=== PATIENT | male | born 1975 | race Caucasian/White ===

== ENCOUNTER 2016-09-18 03:08 | Emergency (ER) | payer MEDICAID ==
[~2016-09-18] VITALS: Ht 165.1 cm; Wt 74.8 kg
--- NOTE | 2016-09-18 03:08 | NUR ---
PT ROSALIA KUHNS. TAKEN TO BED 4
[2016-09-18 03:12] VITALS: BP 5/7
--- NOTE | 2016-09-18 03:15 | NUR ---
BIB [facility], PT C/O ABD PAIN ON RT SIDE. PT STATES HX OF NEUROPAHTY AND IMMUNE DEFICIENCY DENIES N/V/D; SKIN IS PINK/WARM/DRY; AAOX4 WITH EVEN AND STEADY GAIT; LUNGS CLEAR BL; HR EVEN AND REGULAR; PT DENIES ANY FEVER, CP, SOB, OR COUGH AT THIS TIME; PATIENT STATES PAIN OF 7/10 AT THIS TIME; VSS; PATIENT POSITIONED FOR COMFORT; HOB ELEVATED; BEDRAILS UP X2; BED DOWN. ER MD MADE AWARE OF PT STATUS.
--- NOTE | 2016-09-18 03:19 | NUR ---
Dr. Reyes evaluating patient at bedside.
[2016-09-18] MEDS ORDERED: KETOROLAC 30 MG/ML VIAL IM ONE (03:25)
--- NOTE | 2016-09-18 03:49 | NUR ---
I/O CATH, URINE OBTAINED FOR DIP AND UA
--- NOTE | 2016-09-18 03:50 | NUR ---
PT SLEEPING AT THIS TIME, NO DISTRESS OR PAIN NOTED AT THIS TIME
--- NOTE | 2016-09-18 04:18 | NUR ---
md talking to pt regarding discharge.
--- NOTE | 2016-09-18 04:29 | NUR ---
Patient discharged with v/s stable. Written and verbal after care instructions given and explained. Patient alert, oriented and verbalized understanding of instructions. Ambulatory with steady gait. All questions addressed prior to discharge. ID band removed. Patient advised to follow up with PMD. Rx of naprosyn given. Patient educated on indication of medication including possible reaction and side effects. Opportunity to ask questions provided and answered. handout of rehab centers given to patient per his request.
[2016-09-18 04:31] VITALS: BP 152/99
== END 2016-09-18 04:29 | disposition home or self-care (01) ==
LOC: MED 03:08
DX: R10.9 Unspecified abdominal pain (principal)
CPT/HCPCS: 80305; 81002; 96372; 99283; J1885